=== PATIENT | male | born 1985 | race Hispanic/Latino ===

== ENCOUNTER 2023-12-13 17:51 | Emergency (ER) | payer SELFPAY ==
[2023-12-13 18:02] VITALS: BP 157/91
--- NOTE | 2023-12-13 19:38 | ED.GENMED ---
History of Present Illness
General
Chief Complaint: Musculo-Skeletal Complaint
Source: patient and spouse
Exam Limitations: none
Time Seen by Provider: 12/13/23 18:35
Nursing documentation reviewed up to this point in time: agreed with
History of Present Illness
History of Present Illness:
38-year-old male past with history of hypertension diabetes presenting to the emergency department today after a slip and fall landing on the left ring finger and pinky finger ongoing swelling discomfort to the area. Denies any numbness weakness or
additional concerns no additional trauma
Review of Systems
Review of Systems
Allergies reviewed?: Yes
All Other Systems: ROS reviewed and negative except as documented in HPI and ROS
Phy Exam
Physical Exam
Physical Exam:
GENERAL: Alert , in no apparent distress
EYE: pupils equal and reactive
NECK: Supple, no significant adenopathy.
ENT: o/p clr, mmm.
CARDIAC: Regular rate and rhythm .
LUNGS: Clear breath sounds bilaterally, no acute respiratory distress, no wheezes/rales/rhonchi
ABDOMEN: Soft, without focal tenderness, no r/g, no cvat
NEUROLOGICAL: Alert and oriented, no focal neuro deficits
SKIN: Warm and dry, skin intact.
MUSCULOSKELETAL: Swelling tenderness palpation to the fourth MCP no deformity no redness or warmth good range of motion no edema, well perfused.
PSYCH: Normal and appropriate interaction.
Course
Orders/Labs/Results
Orders:
Orders
12/13/23 18:04
CR Finger(s)/thumb Min 2 Vw Lt Urgent
Comment:
Reason For Exam: injury
Indicate Which Finger:: Little Finger
Vital Signs
Initial and Last Documented VS:
Initial Vital Signs
Temp Pulse Resp BP Pulse Ox
98.4 F 88 18 157/91 95
12/13/23 18:02 12/13/23 18:02 12/13/23 18:02 12/13/23 18:02 12/13/23 18:02
Last Documented Vital Signs
Temp Pulse Resp BP Pulse Ox
98.4 F 88 18 157/91 95
12/13/23 18:02 12/13/23 18:02 12/13/23 18:02 12/13/23 18:02 12/13/23 18:02
Procedures
Splinting/Sling Placement
Left Fourth Finger:
Procedure completed by: myself
Pre-splint extermity exam: good alignment
Type of splint: dorsal/volar
Splint material: fiberglass
Splint checked by provider?: Yes
MDM/Problems Addressed
MDM/Problems Addressed:
38-year-old male presenting to the emergency department today with concerns of ring finger discomfort after a fall. Here x-ray without signs of fracture patient with likely sprain. Patient was placed in a splint for comfort and otherwise stable
for outpatient follow-up orthopedic follow-up as needed. Return precautions given.
*Critical Care Note
Total Time (30-74mins, 75-104mins- exclusive of procedures): Not Applicable
ED Attending Note
-
Portions of this chart may have been created with voice recognition software.� Occasional wrong word or��sound alike� substitutions may have occurred due to the inherent limitations of voice recognition software.
Discharge Plan
Departure
Patient Disposition: Home (Routine Discharge)
Date of Disposition: 12/13/23
Time of Disposition: 19:39
Patient with high blood pressure during this ER visit?: No
Condition: Good
Covid-19: Not Applicable
Discharge Problem:
Finger sprain
Instructions: Sprain (DC)
Referrals:
Marlo Ward MD [Active] - Follow up in 5-7 days
Beto Love DO [Family Provider] -
Activity Restrictions/Additional Instructions:
you came to the emergency department today with concerns of finger discomfort after a fall. There is no signs of fracture on x-ray please rest ice compress and elevate over the next few days with hopeful improvement of symptoms. Please follow-up
closely with the hand doctor as needed. Return to the emergency department for any worsening, new or concerning symptoms.
Interventions
Interventions:
*General Assessment Last Done: 12/13/23 18:02
*ED COVID-19 Vaccine History Last Done: 12/13/23 18:02
*Nursing Disposition Last Done: 12/13/23 19:53
ED-Musculoskeletal Assessment Last Done: 12/13/23 19:07
Discharge Date and Time
Print Language: BENINESE
--- NOTE | 2023-12-13 19:53 | EDRN ---
Splint by PA
== END 2023-12-13 19:53 | disposition home or self-care (01) ==
LOC: EMR 17:51
PROVIDERS: EMERGENCY PHYSICIAN Emergency Medicine; FAMILY PHYSICIAN Internal Medicine
DX: S63.615A Unspecified sprain of left ring finger, initial encounter (principal); W01.0XXA Fall on same level from slipping, tripping and stumbling without subsequent striking against object, initial encounter; I10 Essential (primary) hypertension; E11.9 Type 2 diabetes mellitus without complications
CPT/HCPCS: 99283; 29125; 73140